=== PATIENT | male | born 1985 ===

== ENCOUNTER 2022-03-19 18:59 | Emergency (ER) | payer SELFPAY ==
[2022-03-19 19:47] VITALS: BP 143/70
--- NOTE | 2022-03-20 10:34 | Electrocardiograph Report ---
[facility] Test Date: 2022-03-19 Test Time: 19:42:46 Pat Name: NAMAN BUTT Department: Room: Gender: M [place] Singer: TAVIA : 1985 Requested By: ED DOC Order Number: [id number] Reading MD: Bib Ackerman Measurements Intervals [place] Rate: 73 P: 40 [place]: 187 QRS: 73 QRSD: 81 T: 26 QT: 365 QTc: 403 Interpretive Statements Sinus rhythm Consider left ventricular hypertrophy ST elev, probable normal early repol pattern No previous ECG available for comparison Electronically Signed On 03-20-2022 10:34:26 EDT by Bib Ackerman
== END 2022-03-19 20:30 | disposition left against medical advice (07) ==
LOC: ED 18:59
DX: R07.9 Chest pain, unspecified (principal); Z53.21 Procedure and treatment not carried out due to patient leaving prior to being seen by health care provider
CPT/HCPCS: 93005